=== PATIENT | female | born 1980 | race Caucasian/White ===

== ENCOUNTER 2023-08-06 22:39 | Emergency (ER) | payer BC ==
[2023-08-06 23:40] VITALS: RESP 18; TEMP 97.3
[2023-08-06] MEDS ORDERED: Flomax 0.4 MG ONE (23:47)
[2023-08-06] MEDS ORDERED: TORAdol 30 mg Injection ONE (23:47)
[2023-08-06] MEDS ORDERED: Sodium Chloride 0.9% 1000 ML 1,000 ML ONE (23:47)
[2023-08-06] MEDS ORDERED: TYLENOL 325 MG ONE (23:47)
[2023-08-06] MEDS ORDERED: Zofran 4 MG/2 ML VIAL ONE (23:47)
[2023-08-06 23:51] LABS: Absolute Neutrophil Ct (ANC) 10.36 x10^3/uL (1.56-6.13); BASOPHIL % 0.4 % (0.1-1.2); Basophil (Absolute #) 0.05 x10^3/uL (0.01-0.08); Eosinophil % 0.6 % (0.7-5.8); Eosinophil (Absolute #) 0.07 x10^3/uL (0.04-0.36); Hematocrit 38.7 % (34.1-44.9); Hemoglobin 12.9 g/dL (11.2-15.7); IMMATURE GRAN # 0.04 x10^3u/L (0.001-0.031); IMMATURE GRAN % 0.3 % (0.001-0.429); Lymphocyte (Absolute #) 1.29 x10^3/uL (1.18-3.74); Lymphocytes % 10.2 % (19.3-51.7); Mean Cell Volume 89.4 fL (79.4-94.8); Mean Corpuscular Hemoglobin 29.8 pg (25.6-32.2); Mean Corpuscular Hgb Concent. 33.3 g/dL (32.2-35.5); Mean Platelet Volume 9.3 fL (9.4-12.3); Monocyte (Absolute #) 0.88 x10^3/uL (0.24-0.86); Monocytes % 6.9 % (4.7-12.5); Neutrophil % 81.6 % (34.0-71.1); Platelet Count 326 x10^3/uL (182-369); Red Blood Count 4.33 x10^6/uL (3.93-5.22); Red Cell Distribution Width 12.1 % (11.7-14.4); White Blood Count 12.7 x10^3/uL (3.98-10.04)
[2023-08-06 23:56] LABS: Appearance Clear (Clear); Bacteria None Seen /HPF (None Seen); Bilirubin Negative (Negative); Blood Moderate (Negative); Epithelial Cells None Seen /HPF (None Seen); Glucose, Urine Negative (Negative); Ketones Trace (Negative); Leukocyte Esterase Small (Negative); Nitrite Negative (Negative); Ph 5.5 (4.6-8.0); Protein,Urine Dip 30 (Negative); RBC >100 /HPF (0-5); Urobilinogen 0.2 mg/dL (0.2); WBC 21-50 /HPF (0-5)
[2023-08-06] MEDS: Sodium Chloride 0.9% 1000 ML 1,000 ML IV STA (23:58)
[2023-08-06] MEDS: Zofran 4 MG/2 ML VIAL IV ONE (23:59)
[2023-08-06] MEDS: TORAdol 30 mg Injection IV ONE (23:59)
[2023-08-07] MEDS: TYLENOL 325 MG PO ONE
[2023-08-07] MEDS: Flomax 0.4 MG PO STA
[2023-08-07 00:01] LABS: ADD URINE CULTURE? YES (NO)
[2023-08-07 00:06] LABS: ALBUMIN 4.3 g/dL (3.5-5.0); ANION GAP 14.5 MEQ/L (5-15); BILIRUBIN,TOTAL 0.6 mg/dL (0.2-1.3); Calcium 9.4 mg/dL (8.4-10.2); Creatinine 1 1.1 mg/dL (0.52-1.04); EST GLOMERULAR FILTRATION RATE 63.5 ML/MIN; Potassium 3.9 mmol/L (3.5-5.1); Total Protein 7.3 g/dL (6.3-8.2)
--- NOTE | 2023-08-07 00:12 | ERPHSYRPT ---
- History of Present Illness Time Seen by Provider: 08/06/23 22:44 Historian: patient Exam Limitations: no limitations Patient Subjective Stated Complaint: pt states she has a history of having kidney stones. pt thinks she is trying to pass a kidney stone Triage Nursing Assessment: pt ambulated into the er; pt is axo x4; c/o rt flank pain; pt states 7/10 to rt flank region; abd soft, round, tender; active bowel sounds in all quads; skin PDW; no repsiratory distress; hypertensive Physician History: 42-year-old female with history of kidney stones, hypertension presented to the ER with complaint of of off-and-on pain right flank which is worsening since morning. Patient reports moderate intensity sharp pain right flank with radiation to the right groin with associated some difficulty urination. Patient denies any hematuria. Reports nausea but no vomiting. No fever or chills reported. Reports having similar symptoms multiple times in the past. Allergies/Adverse Reactions: fentanyl Allergy (Verified 08/06/23 23:01) Hives meperidine [From Demerol] Allergy (Verified 08/06/23 23:01) Hives morphine Allergy (Verified 08/06/23 23:01) Hives Sulfa (Sulfonamide Antibiotics) Allergy (Verified 08/06/23 23:01) Hives surgical glue Allergy (Uncoded 08/06/23 23:01) Hives Home Medications: Estradiol [Estrace] 2 mg PO DAILY 08/06/23 [History] Famotidine 20 mg PO BID 08/06/23 [History] Losartan Potassium [Cozaar] 12.5 mg PO DAILY 08/06/23 [History] Oxycodone HCl/Acetaminophen [Oxycodone-Acetaminophen 5-325] 1 each PO Q6HPRN PRN 08/06/23 [History] Venlafaxine HCl [Venlafaxine HCl ER] 150 mg PO DAILY 08/06/23 [History] buPROPion HCL [Bupropion Xl] 300 mg PO DAILY 08/06/23 [History] Hx Tetanus, Diphtheria Vaccination/Date Given: No Hx Influenza Vaccination/Date Given: No Hx Pneumococcal Vaccination/Date Given: No Immunizations Up to Date: No Travel Risk - International Travel Have you traveled outside of the country in past 3 weeks: No - Emerging Infectious Disease Are you exhibiting symptoms associated with any current EIDs: No - Review of Systems Constitutional: No Symptoms Eyes: No Symptoms Ears, Nose, & Throat: No Symptoms Respiratory: No Symptoms Cardiac: No Symptoms Abdominal/Gastrointestinal: Abdominal Pain, Nausea Genitourinary Symptoms: Flank Pain Musculoskeletal: No Symptoms Skin: No Symptoms Neurological: No Symptoms Endocrine: No Symptoms Hematologic/Lymphatic: No Symptoms Immunological/Allergic: No Symptoms - Past Medical History Pertinent Past Medical History: Yes Cardiac History: Hypertension Musculoskeletal History: No Pertinent History GI Medical History: No Pertinent History History: Other Psycho-Social History: Depression Female Reproductive Disorders: No Pertinent History Other Medical History: frequent kidney stones - Past Surgical History Past Surgical History: Yes Gastrointestinal: Appendectomy, Cholecystectomy Musculoskeletal: Orthopedic Surgery Female Surgical History: Hysterectomy Other Surgical History: ablation of heart, 2 cyst removal, 6 left knee surgeries - Female History Hx Now: No - Social History Smoking Status: Never smoker Exposure to second hand smoke: No Drug Use: none - Social Determinants of Health Will the patient participate in the screening: Yes Do you worry about a steady place to live?: No Do you have any problems with any of the following?: No known problems In the past 12 months,have you had to go without utilities?: No Transportation Issues: No Has anyone in your support network made you feel unsafe?: No Have you or anyone in your house had to go without enough: No - Nursing Vital Signs Nursing Vital Signs: Initial Vital Signs Temperature 97.3 F 08/06/23 22:50 Pulse Rate 91 H 08/06/23 22:50 Respiratory Rate 18 08/06/23 22:50 Blood Pressure 158/109 08/06/23 22:50 O2 Sat by Pulse Oximetry 98 08/06/23 22:50 Pain Scale Pain Intensity 4 - Physical Exam General Appearance: no apparent distress, alert Eye Exam: PERRL/EOMI Ears, Nose, Throat Exam: normal ENT inspection, pharynx normal Neck Exam: normal inspection, supple, full range of motion Respiratory Exam: normal breath sounds, lungs clear Cardiovascular Exam: regular rate/rhythm, normal heart sounds Gastrointestinal/Abdomen Exam: soft, normal bowel sounds, tenderness (Right flank/right lower quadrant) Back Exam: CVA tenderness (Right side) Extremity Exam: normal inspection, normal range of motion Neurologic Exam: alert, oriented x 3, cooperative Skin Exam: normal color, warm SpO2 Interpretation: normal SpO2: 98 O2 Delivery: Room Air Ordered Tests: Active Orders 24 hr Category Date Time Status IV Insertion STAT Care 08/06/23 23:22 Active NPO (ED) STAT Care 08/06/23 23:22 Active ABDOMEN AND PELVIS W/0 CONTRAS [CT] Stat Exams 08/06/23 23:35 Completed CBC W DIFF Stat Lab 08/06/23 23:33 Completed CMP Stat Lab 08/06/23 23:33 Completed CULTURE,URINE Stat Lab 08/06/23 23:33 Received LIPASE Stat Lab 08/06/23 23:33 Completed UA W/RFX UR CULTURE Stat Lab 08/06/23 23:33 Completed Medication Summary Discontinued Medications Generic Name Dose Route Start Last Admin Trade Name Freq PRN Reason Stop Dose Admin Acetaminophen 975 mg 08/06/23 23:22 08/07/23 00:00 Acetaminophen 325 Mg Tablet PO 08/06/23 23:23 975 mg STAT ONE Administration Acetaminophen Confirm 08/06/23 23:47 Acetaminophen 325 Mg Tablet Administered 08/06/23 23:48 Dose 975 mg .ROUTE .STK-MED ONE Sodium Chloride 1,000 mls @ 999 mls/hr 08/06/23 23:22 08/07/23 00:59 Sodium Chloride 0.9% 1000 Ml IV 08/07/23 00:22 Infused .Q1H1M STA Infusion Sodium Chloride Confirm 08/06/23 23:47 Sodium Chloride 0.9% 1000 Ml Administered 08/06/23 23:48 Dose 1,000 mls @ ud .ROUTE .STK-MED ONE Ceftriaxone Sodium 2 gm in 100 mls @ 200 mls/hr 08/07/23 00:25 08/07/23 01:10 Rocephin 2 Gm/100 Ml Nacl IV 08/07/23 00:54 Infused STAT ONE Infusion Ceftriaxone Sodium Confirm 08/07/23 00:35 Rocephin 2 Gm/100 Ml Nacl Administered 08/07/23 00:36 Dose 2 gm in 100 mls @ ud IV .STK-MED ONE Ketorolac Tromethamine 30 mg 08/06/23 23:22 08/06/23 23:59 Ketorolac Tromethamine 30 Mg/Ml Inj IV 08/06/23 23:23 30 mg STAT ONE Administration Ketorolac Tromethamine Confirm 08/06/23 23:47 Ketorolac Tromethamine 30 Mg/Ml Inj Administered 08/06/23 23:48 Dose 30 mg .ROUTE .STK-MED ONE Ondansetron HCl 4 mg 08/06/23 23:23 08/06/23 23:59 Ondansetron Hcl 4 Mg/2 Ml Vial IV 08/06/23 23:24 4 mg STAT ONE Administration Ondansetron HCl Confirm 08/06/23 23:47 Ondansetron Hcl 4 Mg/2 Ml Vial Administered 08/06/23 23:48 Dose 4 mg .ROUTE .STK-MED ONE Tamsulosin HCl 0.4 mg 08/06/23 23:23 08/07/23 00:00 Tamsulosin Hcl 0.4 Mg Cap PO 08/06/23 23:24 0.4 mg ONCE STA Administration Tamsulosin HCl Confirm 08/06/23 23:47 Tamsulosin Hcl 0.4 Mg Cap Administered 08/06/23 23:48 Dose 0.4 mg .ROUTE .STK-MED ONE Lab/Rad Data: Laboratory Result Diagrams 08/06/23 23:33 08/06/23 23:33 Laboratory Results 08/06/23 08/06/23 08/06/23 Range/Units 23:33 23:33 23:33 WBC 12.7 H (3.98-10.04) x10^3/uL RBC 4.33 (3.93-5.22) x10^6/uL Hgb 12.9 (11.2-15.7) g/dL Hct 38.7 (34.1-44.9) % MCV 89.4 (79.4-94.8) fL MCH 29.8 (25.6-32.2) pg MCHC 33.3 (32.2-35.5) g/dL RDW 12.1 (11.7-14.4) % Plt Count 326 (182-369) x10^3/uL MPV 9.3 L (9.4-12.3) fL Gran % 81.6 H (34.0-71.1) % Immature Gran % (Auto) 0.3 (0.001-0.429) % Nucleat RBC Rel Count 0.0 (0.00-0.2) % Eos # (Auto) 0.07 (0.04-0.36) x10^3/uL Immature Gran # (Auto) 0.04 H (0.001-0.031) x10^3u/L Absolute Lymphs (auto) 1.29 (1.18-3.74) x10^3/uL Absolute Monos (auto) 0.88 H (0.24-0.86) x10^3/uL Absolute Nucleated RBC 0.00 (0.00-0.012) x10^3u/L Lymphocytes % 10.2 L (19.3-51.7) % Monocytes % 6.9 (4.7-12.5) % Eosinophils % 0.6 L (0.7-5.8) % Basophils % 0.4 (0.1-1.2) % Absolute Granulocytes 10.36 H (1.56-6.13) x10^3/uL Basophils # 0.05 (0.01-0.08) x10^3/uL Sodium 137 (135-145) mmol/L Potassium 3.9 (3.5-5.1) mmol/L Chloride 104 (98-107) mmol/L Carbon Dioxide 23 (22-30) mmol/L Anion Gap 14.5 (5-15) MEQ/L BUN 17 (7-17) mg/dL Creatinine 1.10 H (0.52-1.04) mg/dL Estimated GFR 63.5 ML/MIN Glucose 137 H (74-106) mg/dL Calcium 9.4 (8.4-10.2) mg/dL Total Bilirubin 0.60 (0.2-1.3) mg/dL AST 32 (14-36) U/L ALT 37 H (0-35) U/L Alkaline Phosphatase 58 (38-126) U/L Serum Total Protein 7.3 (6.3-8.2) g/dL Albumin 4.3 (3.5-5.0) g/dL Lipase 70 (23-300) U/L Urine Color Yellow (Yellow) Urine Appearance Clear (Clear) Urine pH 5.5 (4.6-8.0) Ur Specific [place] 1.020 (1.005-1.030) Urine Protein 30 (Negative) Urine Glucose (UA) Negative (Negative) mg/dL Urine Ketones Trace A (Negative) Urine Blood Moderate A (Negative) Urine Nitrite Negative (Negative) Urine Bilirubin Negative (Negative) Urine Urobilinogen 0.2 (0.2) mg/dL Ur Leukocyte Esterase Small A (Negative) U Hyaline Cast (Auto) 6-10 A (0-2) /LPF Urine Microscopic RBC >100 A (0-5) /HPF Urine Microscopic WBC 21-50 A (0-5) /HPF Ur Epithelial Cells None Seen (None Seen) /HPF Urine Bacteria None Seen (None Seen) /HPF Urine Culture Reflexed YES (NO) - Progress Progress: improved, pain not gone completely Progress Note: 08/07/23 00:57 42-year-old with history of kidney stone is evaluated in the ER with right flank pain and some UTI symptoms. Patient is given fluids and symptomatic treatment. Feeling better on reevaluation. Workup showed white count of 12, fairly unremarkable chemistries, does have UTI and given a dose of Rocephin. CT abdomen pelvis without contrast showed left Zico ureteral stone with some obstruction/hydroureter hydronephrosis and perinephric fat stranding and Manjeet renal small fluid collection. No urology services are available, patient would be transferred. 08/07/23 02:[address] Black at [facility] urology, reviewed history, workup, agreed with transfer patient to hospitalist service there. I have discussed with Dr. Angelika perez, reviewed history, workup and urology recommendation to keep patient n.p.o. and patient is excepted for transfer. Discussed the results of workup with patient, plan of transfer which she understands and agrees. Will see patient in: other Counseled pt/family regarding: lab results, diagnosis, rad results Medical Desision Making - Discussion of managment Care discussed with:: specialist (Dr. Black urology and Dr. Angelika perez [facility]) Reviewed:: Test results Agreed on:: Treatment plan Will see patient: in hospital - Diagnostic Testing Diagnostic test were ordered, analyzed, and reviewed by me: Yes Radiological Interpretation: Reviewed by me, Teleradiologist Report - Risk of complications The pt has a mod risk of morbidity or mortality based on: Need for prescription drug management, Need for major surgery in otherwise healthy patient - Departure Departure Disposition: Transfer Clinical Impression: Obstructive uropathy, Pyelonephritis Condition: Stable Critical Care Time: No Referrals: DOCTOR,NO FAMILY [Primary Care Provider] - Follow up/PCP as directed
--- NOTE | 2023-08-07 00:15 | XRAY ---
CLINICAL HISTORY: RIGHT FLANK PAIN COMPARISON: None TECHNIQUE: Contiguous axial images were obtained from the level of the diaphragm to the pubic symphysis without intravenous or oral contrast. Coronal and sagittal reconstructions were likewise performed and indicated to increase the sensitivity for detecting clinically relevant pathology. CT scan was performed according to ALARA (as low as reasonably achievable) FINDINGS: The visualised lung bases are clear. Evaluation of the abdominal and pelvic visceral organs is limited without intravenous contrast. The unenhanced live shows fatty infiltration. The spleen, pancreas, and adrenal glands are grossly unremarkable. The gallbladder is not visualized. The kidneys are normal in size and attenuation. Bilateral non-obstrutive renal calculi are seen, largest in the lower pole of the right kidney measuring around 4.8 mm A calculus measuring around 6.2 mm is seen in the right vesico-ureteric junction (intravesical segment) causing proximal obstructive changes in the right kidney in form of hydroureter and hydronephrosis. Right sided perinephric fat stranding and marissa-renal fluid is seen. No adenopathy or fluid collections are seen. No evidence of focal or diffuse bowel wall thickening or evidence of bowel obstruction is seen. The appendix is visualised in the right lower quadrant and appears within normal limits. The aorta is normal in calibre. The urinary bladder is normal in contour. Pelvic viscera are grossly unremarkable. No aggressive appearing osseous lesions are identified. Degeneative changes are seen in the thoracic spine. IMPRESSION: 1. Right vesico-ureteric junction calculus causing proximal obstructive changes in the right kidney in form of hydroureter and hydronephrosis. Right sided perinephric fat stranding and marissa-renal fluid is seen. 2. Bilateral non-obstructive renal calculi 3. Fatty liver Electronically Signed by: Jean Dorsey MD. (08/07/2023 00:10:50 EDT)
[2023-08-07] MEDS ORDERED: ROCEPHIN 2 GM/100 ML NACL 2 GM/100 ML IVPB IV ONE (00:35)
[2023-08-07] MEDS: ROCEPHIN 2 GM/100 ML NACL 2 GM/100 ML IVPB IV ONE (00:38)
[2023-08-07] MEDS ORDERED: Sodium Chloride 0.9% 1000 ML 1,000 ML ONE (04:48)
[2023-08-07] MEDS: Sodium Chloride 0.9% 1000 ML 1,000 ML IV SCH (04:51)
[2023-08-07] MEDS: TYLENOL 325 MG PO STA ×2 (06:33→06:36)
[2023-08-07] MEDS ORDERED: TYLENOL 325 MG ONE (06:35)
[2023-08-07] MEDS ORDERED: TORAdol 30 mg Injection ONE (06:35)
[2023-08-07] MEDS: TORAdol 30 mg Injection IV ONE (06:36)
[2023-08-07 07:03] VITALS: O2SAT 100
[2023-08-07 08:15] VITALS: BP 141/85; PULSE 85
== END 2023-08-07 08:25 | disposition short-term general hospital (02) ==
LOC: ED 22:39
DX: N13.9 Obstructive and reflux uropathy, unspecified (principal); N13.6 Pyonephrosis; R10.9 Unspecified abdominal pain; R11.0 Nausea; I10 Essential (primary) hypertension; Z79.891 Long term (current) use of opiate analgesic; Z79.899 Other long term (current) drug therapy; Z87.442 Personal history of urinary calculi
CPT/HCPCS: 36000; 36415; 74176; 80053; 81001; 83690; 85025; 87086; 96360; 96374; 96375; 99285; J0696; J1885; J2405; A9270-GY